=== PATIENT | female | born 2000 | race Two or more races ===

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

== ENCOUNTER 2020-09-21 10:30 | Emergency (ER) | payer OTHER ==
[~2020-09-21] VITALS: Ht 154.9 cm; Wt 53.1 kg
[2020-09-21 14:59] VITALS: BP 126/87
== END 2020-09-21 15:27 | disposition home or self-care (01) ==
LOC: ER 10:30
DX: U07.1 COVID-19 (principal); J20.9 Acute bronchitis, unspecified
CPT/HCPCS: 71045; 99283; J7030

== ENCOUNTER 2023-06-19 10:40 | Emergency (ER) | payer OTHER ==
[~2023-06-19] VITALS: Ht 154.9 cm; Wt 61.3 kg
[2023-06-19 12:42] VITALS: BP 120/62; PULSE 54; RESP 16; TEMP 98.1; O2SAT 100
[2023-06-21 09:44] LABS: Hepatitis B Surface Antibody Negative (Negative)
[2023-06-21 12:15] LABS: Hepatitis B Surface Antigen Negative (Negative)
== END 2023-06-19 13:06 | disposition home or self-care (01) ==
LOC: EEVIPCON 10:40 → ER 10:40
DX: S60.941A Unspecified superficial injury of left index finger, initial encounter (principal); X58.XXXA Exposure to other specified factors, initial encounter; Y93.89 Activity, other specified; Y92.89 Other specified places as the place of occurrence of the external cause; Y99.8 Other external cause status
CPT/HCPCS: 36415; 86703; 86706; 86803; 87340

== ENCOUNTER → 2025-09-12 | Outpatient (CLI) | payer BC ==
[2025-09-12 13:03] LABS: Hematocrit 43.9 % (36.0-46.0); Hemoglobin 14.7 g/dL (12.2-16.2); Mean Corpuscular Hemoglobin 30.9 pg (28.0-32.0); Mean Corpuscular Volume 92.4 fL (80.0-100.0); Nucleated Red Blood Cells % 0.0 %
[2025-09-12 13:04] LABS: Urine Protein, UAD Negative (Negative)
[2025-09-12 13:35] LABS: Alanine Aminotransferase 16 U/L (7-40); Alkaline Phosphatase 69 U/L (46-116); Anion Gap 11 (5-15); BUN/Creatinine Ratio 13.7 (10.0-20.0); Blood Urea Nitrogen 13 mg/dL (9-23); Calcium 9.8 mg/dL (8.7-10.4); Carbon Dioxide 26 mmol/L (20-31); Chloride 104 mmol/L (98-107); Glucose 92 mg/dL (74-106); Potassium 4.6 mmol/L (3.5-5.1); Sodium 141 mmol/L (136-145); Total Protein 7.8 g/dL (5.7-8.2); Triglycerides 77 mg/dL (< 150)
[2025-09-12 13:36] LABS: Bilirubin, Total 0.5 mg/dL (0.2-1.0); Follicle Stimulating Hormone 6.97 IU/L (SEE BELOW); HDL Cholesterol 58 mg/dL (40-59)
[2025-09-12 13:37] LABS: Free T4 (Free Thyroxine) 1.23 ng/dL (0.89-1.76)
[2025-09-12 13:38] LABS: Albumin 5.0 g/dL (3.2-4.8); Cholesterol 229 mg/dL (< 200)
== END | disposition home or self-care (01) ==
LOC: LAB 12:18
PROVIDERS: ATTEND Student in an Organized Health Care Education/Training Program
DX: E55.9 Vitamin D deficiency, unspecified (principal); N93.9 Abnormal uterine and vaginal bleeding, unspecified; R03.0 Elevated blood-pressure reading, without diagnosis of hypertension; R79.89 Other specified abnormal findings of blood chemistry
CPT/HCPCS: 36415; 80053; 80061; 81001; 82306; 83001; 83002; 83036; 84146; 84439; 84443; 85025